=== PATIENT | male | born 1975 | race African-American/Black ===

== ENCOUNTER 2018-09-07 13:36 | Emergency (ER) | payer SELFPAY ==
--- NOTE | 2018-09-07 13:43 | PHYS DOC ---
Adult General Chief Complaint Chief Complaint: ANXIETY/PANIC ATTACK HPI HPI Patient is a 43-year-old male brought in by ambulance with a complaint of shortness of breath and some tightness to her shooting pains in both arms. It occurred while he was walking home from work he walks about 40 minutes in the heat. He breath he does have a history of anxiety it sometimes causes him to feel this way but he thinks he just got overheated he tells me. No chest pain currently having some cramps in his altered otherwise doing okay overall. Denies significant previous medical history no daily medications Review of Systems Review of Systems Constitutional: Denies fever or chills [] Eyes: Denies change in visual acuity, redness, or eye pain [] HENT: Denies nasal congestion or sore throat [] Musculoskeletal: Denies back pain or joint pain [] Integument: Denies rash or skin lesions [] Neurologic: Denies headache, focal weakness or sensory changes [] Endocrine: Denies polyuria or polydipsia [] All other systems were reviewed and found to be within normal limits, except as documented in this note. Allergies Allergies Allergies Coded Allergies Type Severity Reaction Last Updated Verified No Known Drug Allergies 09/07/18 No Physical Exam Physical Exam Constitutional: Well developed, well nourished, no acute distress, non-toxic appearance. [] HENT: Normocephalic, atraumatic, bilateral external ears normal, oropharynx dry, no oral exudates, nose normal. [] Eyes: PERRLA, EOMI, conjunctiva normal, no discharge. [] Neck: Normal range of motion, no tenderness, supple, no stridor. [] Cardiovascular:Heart rate regular rhythm, no murmur [] Lungs & Thorax: Bilateral breath sounds clear to auscultation [] Abdomen: Bowel sounds normal, soft, no tenderness, no masses, no pulsatile masses. [] Skin: Warm, dry, no erythema, no rash. [] Back: No tenderness, no CVA tenderness. [] Extremities: No tenderness, no cyanosis, no clubbing, ROM intact, no edema. [] Neurologic: Alert and oriented X 3, normal motor function, normal sensory function, no focal deficits noted. [] Psychologic: Affect normal, judgement normal, mood mild anxiety noted but calm and cooperative EKG EKG []Normal sinus rhythm rate of 82 no acute ischemic changes noted intervals are normal interpreted by me the time of encounter. Radiology/Procedures Radiology/Procedures [] Course & Med Decision Making Course & Med Decision Making Pertinent Labs and Imaging studies reviewed. (See chart for details) []Initial blood pressure was in the 180s for the paramedics no history of hypertension Well-appearing 43-year-old male with likely anxiety reaction and/or some overheating. He slept in the emergency room he felt a lot better he was having no chest pain at all blood pressure came down to the 130s he said his symptoms resolved entirely reassurance provided Dragon Disclaimer Dragon Disclaimer This electronic medical record was generated, in whole or in part, using a voice recognition dictation system. Departure Departure: Impression: Primary Impression: Heat exposure Disposition: HOME, SELF-CARE Condition: STABLE KARIS AREVALO MD Sep 07, 2018 13:43
[2018-09-07] MEDS ORDERED: IV NORMAL SALINE 1,000ML 1,000 ML IV ONE (13:45)
--- NOTE | 2018-09-07 13:49 | EKG ---
[address] [address] Test Date: 2018-09-07 Test Time: 13:48:47 Pat Name: SNEHA POSEY Department: Room: Gender: M Social Worker Psychiatric: : 1975 Requested By: KARIS AREVALO Order Number: [id number] Reading MD: Measurements Intervals [place] Rate: 82 P: 9 CT: 134 QRS: 59 QRSD: 86 T: 56 QT: 374 QTc: 440 Interpretive Statements SINUS RHYTHM OTHERWISE NORMAL ECG RI6.01 No previous ECG available for comparison
--- NOTE | 2018-09-07 14:04 | RAD ---
CHEST AP ONLY Clinical Indication: Shortness of breath. Comparison: None. Findings: The cardiomediastinal silhouette is normal. Lungs are clear. There is no pneumothorax. No pleural effusion is appreciated. No acute bone abnormality. IMPRESSION: No acute cardiopulmonary process. Electronically signed by: Bal Peng MD (09/07/2018 2:01 PM) [id number]
[2018-09-07 14:15] LABS: BASO # 0.1 x10^3/uL (0.0-0.2); BASO % 1 % (0-3); EOS # 0.1 x10^3/uL (0.0-0.7); EOS % 1 % (0-3); HEMATOCRIT 41.8 % (39.0-53.0); HEMOGLOBIN 14.2 g/dL (13.0-17.5); LYMPH # 1.5 x10^3/uL (1.0-4.8); LYMPH % 17 % (24-48); MEAN CORPUSCULAR HEMOGLOBIN 29 pg (25-35); MEAN CORPUSCULAR HGB CONC 34 g/dL (31-37); MEAN CORPUSCULAR VOLUME 86 fL (79-100); MONO # 0.6 x10^3/uL (0.0-1.1); MONO % 6 % (0-9); NEUT # 6.6 x10^3uL (1.8-7.7); NEUT % 74 % (31-73); PLATELET COUNT 254 x10^3/uL (140-400); RED BLOOD COUNT 4.84 x10^6/uL (4.30-5.70); RED CELL DISTRIBUTION WIDTH 14.6 % (11.5-14.5); WHITE BLOOD COUNT 8.8 x10^3/uL (4.0-11.0)
[2018-09-07 14:30] LABS: CALCIUM 8.9 mg/dL (8.5-10.1); CREATININE 0.8 mg/dL (0.7-1.3); GFR 127.7; POTASSIUM 3.7 mmol/L (3.5-5.1)
[2018-09-07 15:26] VITALS: BP 139/78
== END 2018-09-07 15:30 | disposition home or self-care (01) ==
LOC: ER 13:36
DX: T67.5XXA Heat exhaustion, unspecified, initial encounter (principal); X30.XXXA Exposure to excessive natural heat, initial encounter; Y93.89 Activity, other specified; Y92.89 Other specified places as the place of occurrence of the external cause; Y99.8 Other external cause status
CPT/HCPCS: 36415; 71045; 80048; 84484; 85025; 93005; 96374; 99285; J2060; J7030